=== PATIENT | female | born 1990 | race Hispanic/Latino ===

== ENCOUNTER 2020-05-11 05:58 | Inpatient (IN) | payer BC, OTHER ==
[2020-05-11 06:44] VITALS: BMI 44.9
[2020-05-11] MEDS ORDERED: Ondansetron PF 4 MG/2 ML Vial IVP PRN ×3 (06:56→12:02)
[2020-05-11] MEDS ORDERED: HYDROcodone/Acetaminophen 5/325 mg Tablet PO PRN ×2 (06:56→12:02)
[2020-05-11] MEDS ORDERED: Misoprostol 200 MCG TAB PR PRN (06:56)
[2020-05-11] MEDS ORDERED: hydrALAZINE 20 MG/ML VIAL SLOW IVP PRN ×2 (06:56→12:02)
[2020-05-11] MEDS ORDERED: Diphenoxylate HCl/Atropine Tablet PO PRN (06:56)
[2020-05-11] MEDS ORDERED: Promethazine HCl 25 MG/ML VIAL IM PRN ×3 (06:56→12:02)
[2020-05-11] MEDS ORDERED: Methylergonovine 0.2 MG/ML VIAL IM PRN (06:56)
[2020-05-11] MEDS ORDERED: Carboprost 250 MCG/ML AMP IM PRN (06:56)
[2020-05-11] MEDS ORDERED: Ibuprofen 800 MG TAB PO PRN (06:56)
[2020-05-11] MEDS ORDERED: Butorphanol Tartrate 1 MG/ML VIAL SLOW IVP PRN (06:56)
[2020-05-11] MEDS ORDERED: Lidocaine 1% (PF) 30 ML VIAL SC PRN (06:56)
[2020-05-11] MEDS: Lactated Ringer's 1,000 ML IV SCH ×2 (07:06→08:35)
[2020-05-11 07:18] LABS: Mean Corpuscular HGB CONC 32.3 g/dL (32.0-36.0); Mean Corpuscular Hemoglobin 26.5 pg (27.0-31.0); Mean Platelet Volume 8.9 fL (7.4-10.4); Platelet Count 260 thou/uL (130-400); RBC Distribution Width 14.2 % (11.5-14.5); Red Blood Cell (RBC) Count 4.53 mill/uL (4.20-5.40)
[2020-05-11] MEDS ORDERED: NS w/ Oxytocin 30 units 500 ML IV SCH ×2 (07:30→12:15)
[2020-05-11 07:57] LABS: HBSAg Index 0.17 S/CO (0-0.99); Hep B Surf Ag Non-Reactive S/CO (NonReactive); Syphilis Antibody Nonreactive (Nonreactive); Syphilis Antibody Index 0.04 S/CO (<1.00 Non-Reactive)
[2020-05-11] MEDS ORDERED: Fentanyl 4 mcg/Bup 0.1% Cadd 100 ML ONE (08:10)
[2020-05-11] MEDS ORDERED: diphenhydrAMINE 50 MG/ML VIAL IVP PRN (09:04)
[2020-05-11] MEDS ORDERED: ePHEDrine 50 MG/ML VIAL SLOW IVP PRN (09:04)
[2020-05-11] MEDS ORDERED: Acetaminophen 325 MG TAB PO PRN (09:04)
[2020-05-11] MEDS ORDERED: Lactated Ringer's 500 ML IV PRN (09:04)
[2020-05-11] MEDS ORDERED: Naloxone HCl 0.4 mg/ml Vial IVP PRN ×2 (09:04)
[2020-05-11] MEDS ORDERED: Fentanyl 4 mcg/Bupivacaine 0.1% Cassette 100 ML EPIDURAL SCH (09:15)
[2020-05-11] MEDS ORDERED: Communication Order-Pharmacy FS SCH (09:15)
[2020-05-11] MEDS ORDERED: Famotidine/PF 20 mg/2ml Vial ONE (10:16)
[2020-05-11 11:09] LABS: Actual Bicarbonate (HCO3a) 19.6 mEq/L (22-28); Analyzer IN Cardio OR
[2020-05-11] MEDS ORDERED: diphenhydrAMINE 25 MG CAP PO PRN (12:02)
[2020-05-11] MEDS ORDERED: Bisacodyl 10 MG SUPP PR PRN (12:02)
[2020-05-11] MEDS ORDERED: Adacel (T-DAP) 0.5 ML SYRINGE IM ONE (12:02)
[2020-05-11] MEDS ORDERED: Milk Of Magnesia 30 ML UDCUP PO PRN (12:02)
[2020-05-11] MEDS ORDERED: Benzocaine-Menthol 82.5 ML CAN TOP PRN (12:02)
[2020-05-11] MEDS ORDERED: Lanolin Ointment 7 GM TUBE TOP PRN (12:02)
[2020-05-11] MEDS ORDERED: Bupivacaine HCl 0.25%/Epi 0.0005/PF 10 ML VIAL FS ONE (12:16)
[2020-05-11] MEDS: Ibuprofen 800 MG TAB PO SCH ×2 (12:44→22:19)
[2020-05-11] MEDS: Ferrous Sulfate 325 MG TAB PO SCH (19:22)
[2020-05-11] MEDS: HYDROcodone/Acetaminophen 5/325 mg Tablet PO PRN (22:18)
[2020-05-11] MEDS: Docusate Calcium (SURFAK) 240 MG CAP PO SCH (22:19)
[2020-05-12] MEDS: Ibuprofen 800 MG TAB PO SCH ×2 (05:45→14:06)
[2020-05-12 08:26] VITALS: TEMP 98.1
[2020-05-12 08:46] LABS: SARS-CoV-2 PCR by NAA Not Detected (NotDetected)
[2020-05-12] MEDS ORDERED: Prenatal Vitamin 1 TAB PO SCH (09:00)
[2020-05-12] MEDS: Ferrous Sulfate 325 MG TAB PO SCH (09:36)
[2020-05-12] MEDS: Docusate Calcium (SURFAK) 240 MG CAP PO SCH (09:36)
[2020-05-12 11:47] VITALS: BP 98/53
[2020-05-12] MEDS: HYDROcodone/Acetaminophen 5/325 mg Tablet PO PRN (14:08)
== END 2020-05-12 16:00 | disposition home or self-care (01) | DRG 807 ==
LOC: L&D/OP 05:58 → L&D 06:56 → 3SW 15:40
PROVIDERS: ADMIT Family Medicine; ATTEND Family Medicine
PROC: 10D07Z6 Extraction of Products of Conception, Vacuum, Via Natural or Artificial Opening (ICD-10-PCS; principal; 2020-05-11)
PROC: 10907ZC Drainage of Amniotic Fluid, Therapeutic from Products of Conception, Via Natural or Artificial Opening (ICD-10-PCS; 2020-05-11)
PROC: 0W8NXZZ Division of Female Perineum, External Approach (ICD-10-PCS; 2020-05-11)
DX: O76 Abnormality in fetal heart rate and rhythm complicating labor and delivery (principal); Z37.0 Single live birth; Z20.822 Contact with and (suspected) exposure to COVID-19; O99.214 Obesity complicating childbirth; E66.9 Obesity, unspecified; O66.5 Attempted application of vacuum extractor and forceps; Z88.0 Allergy status to penicillin; Z3A.39 39 weeks gestation of pregnancy
CPT/HCPCS: 36415; 51702; 82805; 85027; 86780; 86850; 86900; 86901; 87340; 87635; 88307; J2590; J7030; S0028; U0003; U0005